=== PATIENT | female | born 1955 | race Caucasian/White ===

== ENCOUNTER 2016-11-04 05:32 | Day surgery (SDC) | payer OTHER ==
[~2016-11-04] VITALS: Ht 172.7 cm; Wt 95.0 kg
[~2016-11-04 05:32] MED LIST: ALLEGRA180 MG PO; CARDIZEM CD180 MG PO; CELEBREX200 MG PO; CELEXA40 MG PO; CITALOPRAM HBR20 M1 PO; COUMADIN PO; DILTIAZEM 24HR180 MG PO; DILTIAZEM PO; FEOSOL325 MG PO; FLONASE16 G1 BOTH NARES; FLONASE16 GM NS; LANOXIN,DIGIT0.25 MG PO; LEVO-T112 MCG PO; LEVOTHROID100 MCG PO; LISINOPRIL-HCT1 EACH PO; MELOXICAM7.5 MG PO; PERCOCET 7.5-31 EACH PO; SENOKOT S,PE1 TABLET PO; SINGULAIR10 MG PO; Vicodin,Lortab 5/500 PO; ZESTORETIC,P1 TABLET PO
[2016-11-04 06:36] VITALS: BP 126/49
[2016-11-04 09:33] LABS: POINT-OF-CARE METER ID UU13113675
[2016-11-04 09:45] VITALS: BP 147/75
[2016-11-04 10:25] VITALS: BP 147/67
== END 2016-11-04 10:50 | disposition home or self-care (01) ==
LOC: SDC 05:32
PROVIDERS: Internal Medicine
DX: H59.021 Cataract (lens) fragments in eye following cataract surgery, right eye (principal); Y83.4 Other reconstructive surgery as the cause of abnormal reaction of the patient, or of later complication, without mention of misadventure at the time of the procedure; F17.200 Nicotine dependence, unspecified, uncomplicated; I10 Essential (primary) hypertension; M19.90 Unspecified osteoarthritis, unspecified site; J30.9 Allergic rhinitis, unspecified; Z88.8 Allergy status to other drugs, medicaments and biological substances
CPT/HCPCS: 82948; J0690; J1100; J1885; J2250; J2405; J3010; J3300